=== PATIENT | male | born 1980 ===

== ENCOUNTER 2016-08-07 15:22 | Emergency (ER) | payer OTHER ==
[2016-08-07 16:03] VITALS: RESP 18; O2SAT 99
--- NOTE | 2016-08-07 18:00 | C.PDOC ---
History Of Present Illness 35 y/o male presents to the ED complaining of left greater than right lumbar paraspinal pain that radiates to the LLQ. Patient reports seen in the [place] ER 3 days prior and had scrotal ultrasound and CT of the abdomen/pelvis which were unremarkable. Patient was given Rx Motrin 600 TID which he states he took for two days but did not take today. Patient denies fever, chest pain, shortness of breath, dysuria, vomiting, or other complaints. Time Seen by Provider: 08/07/16 16:34 Chief Complaint (Nursing): Male Genitourinary History Per: Patient History/Exam Limitations: no limitations Onset/Duration Of Symptoms: Days (5), Gradual, Persistent Current Symptoms Are (Timing): Still Present Recent travel outside of the [place]: No Past Medical History Reviewed: Historical Data, Nursing Documentation, Vital Signs Vital Signs: Last Vital Signs Temp 98.5 F 08/07/16 18:29 Pulse 77 08/07/16 18:29 Resp 18 08/07/16 18:29 BP 157/84 H 08/07/16 18:29 Pulse Ox 99 08/07/16 18:29 - Medical History PMH: No Chronic Diseases Surgical History: No Surg Hx Family History: States: Unknown Family Hx - Social History Hx Tobacco Use: No Hx Alcohol Use: No Hx Substance Use: No - Immunization History Hx Tetanus Toxoid Vaccination: Yes (2013) Hx Influenza Vaccination: No Hx Pneumococcal Vaccination: No Review Of Systems Except As Marked, All Systems Reviewed And Found Negative. Constitutional: Negative for: Fever Cardiovascular: Negative for: Chest Pain Respiratory: Negative for: Shortness of Breath Gastrointestinal: Positive for: Abdominal Pain (LLQ). Negative for: Vomiting Genitourinary: Negative for: Dysuria Musculoskeletal: Positive for: Other (left greater than right lumbar paraspinal pain) Physical Exam - Physical Exam Appears: Non-toxic, No Acute Distress Skin: Normal Color, Warm, Dry, No Rash Head: Atraumatic, Normacephalic Neck: Normal ROM, No Midline Cervical Tenderness, Supple Chest: Symmetrical Cardiovascular: Rhythm Regular Respiratory: Normal Breath Sounds, No Rales, No Rhonchi, No Wheezing Gastrointestinal/Abdominal: Normal Exam, Soft, No Tenderness, No Guarding, No Rebound Back: No Vertebral Tenderness, Other (left greater than right lumbar paraspinal tenderness; pain with movement from sitting to standing) Extremity: Normal ROM, No Tenderness, No Swelling Neurological/Psych: Oriented x3, Normal Speech, Normal Cognition, Normal Motor, Normal Sensation ED Course And Treatment O2 Sat by Pulse Oximetry: 99 (ra) Pulse Ox Interpretation: Normal Medical Decision Making Medical Decision Making: L>R paralumbar back spasm CT of abd/pelvis 08/04/16 wnl- no spinal issues noted 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 Plan: * Tramadol IM, Ultram PO Improved with ice,nsaids, tramadol educated same Disposition Doctor Will See Patient In The: Office Counseled Patient/Family Regarding: Studies Performed, Diagnosis - Disposition Referrals: Taran Mccord MD [Medical Doctor] - Disposition: HOME/ ROUTINE Disposition Time: 17:59 Condition: GOOD Additional Instructions: [place] 1/2 hora por hora, nada caliente Ibuprofeno 600 mg cada 6 horas sudheer necessario Pepcid 20 mg en la noche- previene irritacion' del estomago debido al Ibuprofeno Tramadol 50 mg (narcotico) 1 tableta cada 6 horas para sharon mas severos No levanta nada pesada por lizbeth semana. Sigue con reyes medico de cabezera sudheer necessario. Prescriptions: traMADol [Ultram] 50 mg PO Q6H PRN #20 tab PRN Reason: pain Instructions: Acute Low Back Pain (ED) Forms: Work Excuse Print Language: WOLOF - Clinical Impression Clinical Impression: Low back pain - Scribe Statement The provider has reviewed the documentation as recorded by the Scribe (Marine Garcia) Provider Attestation: All medical record entries made by the Scribe were at my direction and personally dictated by me. I have reviewed the chart and agree that the record accurately reflects my personal performance of the history, physical exam, medical decision making, and the department course for this patient. I have also personally directed, reviewed, and agree with the discharge instructions and disposition.
[2016-08-07 18:30] VITALS: BP 157/84; PULSE 77; TEMP 98.5
== END 2016-08-07 18:30 | disposition home or self-care (01) ==
LOC: C.ER 15:22
DX: M54.5 Low back pain (principal)
CPT/HCPCS: 96372; 99284; J1885